=== PATIENT | male | born 1970 | race American Indian/Alaskan Native ===

== ENCOUNTER 2017-06-07 00:22 | Emergency (ER) | payer OTHER ==
--- NOTE | 2017-06-07 04:05 | Emergency Department Report ---
ED Laceration HPI - HPI Chief Complaint: Wound/Laceration Stated Complaint: LACERATION TO HEAD Time Seen by Provider: 06/07/17 03:41 Occurred When: Today Location: Head Severity: mild Tetanus Status: Not up to Date Laceration Symptoms: No Foreign Body Sensation, No Numbness, No Weakness, No Pain Other History: he states he was moving some furniture earlier today when he hit his forehead on a dresser, close to left upper eyebrow. Patient states bleeding bleeding was sustained after that. Patient states that the dresser. This eyebrow has a headache. He describes minimal pain at the site. Denies any loss of consciousness and was self after the incident. ED Review of Systems ROS: Stated complaint: LACERATION TO HEAD Other details as noted in HPI Constitutional: denies: chills, fever Eyes: denies: eye pain, eye discharge, vision change ENT: denies: ear pain, throat pain Respiratory: denies: cough, shortness of breath, wheezing Cardiovascular: denies: chest pain, palpitations Endocrine: no symptoms reported Gastrointestinal: denies: abdominal pain, nausea, diarrhea Genitourinary: denies: urgency, dysuria Musculoskeletal: denies: back pain, joint swelling, arthralgia Skin: denies: rash, lesions Neurological: denies: headache, weakness, paresthesias Psychiatric: denies: anxiety, depression Hematological/Lymphatic: denies: easy bleeding, easy bruising ED Past Medical Hx - Past Medical History Previous Medical History?: No - Surgical History Past Surgical History?: No - Social History Smoking Status: Never Smoker Substance Use Type: Alcohol - Medications Home Medications: Home Medications Medication Instructions Recorded Confirmed Last Taken Type Cephalexin [Keflex] 500 mg PO Q12HR #8 cap 06/07/17 Unknown Rx Ibuprofen [Motrin] 800 mg PO Q8HR PRN #20 tablet 06/07/17 Unknown Rx Laceration Physical Exam - Exam General: Vital signs noted. No distress. Alert and acting appropriately. Wound Length (cm): 1 Laceration Location: Head Full Body Front + Back: 1 - 1cm superficial abrasion, Laceration Exam: Yes Normal Distal CMS, No Foreign Body, No Exposed Tendon, Vessel, or Nerve, No Tendon Injury ED Course Vital Signs 06/07/17 01:05 Temperature 98.4 F Pulse Rate 63 Respiratory 18 Rate Blood Pressure 153/100 Blood Pressure 153/100 [Left] O2 Sat by Pulse 98 Oximetry - Laceration /Wound Repair Left Face Wound Location: head (left eyebrow) Wound Length (cm): 1 Wound's Depth, Shape: superficial, linear Wound Explored: clean Irrigated w/ Saline (ccs): 50 Betadine Prep?: No Wound Repaired With: Steri-strips Number of Sutures: 0 Layer Closure?: No Sterile Dressing Applied?: Yes ED Medical Decision Making - Medical Decision Making 47-year-old male presents with abrasion to the eyebrow ED course: Patient received TD booster and Motrin for pain. Discussed acute wound patient care of the patient. Steri-Strips applied mild superficial laceration Discussed patient's her she she'll follow off and can continue to put Neosporin daily discussed to follow up with primary care physician in 3-5 days. Vital signs normal patient is in acute distress patient had an uneventful ED stay Critical care attestation.: If time is entered above; I have spent that time in minutes in the direct care of this critically ill patient, excluding procedure time. ED Disposition Clinical Impression: Abrasion of eyebrow Qualifiers: Encounter type: initial encounter Laterality: left Qualified Code(s): S00.212A - Abrasion of left eyelid and periocular area, initial encounter Disposition: -01 TO HOME OR SELFCARE Is pt being admited?: No Does the pt Need Aspirin: No Condition: Stable Instructions: Contusion in Adults (ED), Abrasion (ED) Prescriptions: Cephalexin [Keflex] 500 mg PO Q12HR #8 cap Ibuprofen [Motrin] 800 mg PO Q8HR PRN #20 tablet PRN Reason: Pain Referrals: PRIMARY CAREMD [Primary Care Provider] - 3-5 Days FINN BOWMAN MD [Referring] - 3-5 Days [facility] [Outside] - 3-5 Days [facility] [Outside] - 3-5 Days Forms: Accompanied Note, Work/School Release Form(ED) Time of Disposition: 04:06
[2017-06-07] MEDS ORDERED: MOTRIN PO ONE (04:06)
[2017-06-07] MEDS ORDERED: BOOSTRIX IM ONE (04:06)
[2017-06-07 04:33] VITALS: BP 148/88
== END 2017-06-07 04:33 | disposition home or self-care (01) ==
LOC: ED 00:22
DX: S01.112A Laceration without foreign body of left eyelid and periocular area, initial encounter (principal); W22.03XA Walked into furniture, initial encounter; Y93.9 Activity, unspecified; Y99.9 Unspecified external cause status; Y92.89 Other specified places as the place of occurrence of the external cause
CPT/HCPCS: 90471; 90715